=== PATIENT | male | born 1965 | race Hispanic/Latino ===

== ENCOUNTER 2023-10-20 08:27 | Outpatient (CLI) | payer OTHER ==
[2023-10-20 08:49] LABS: #Basophils 0.1 thou/uL (0.0-0.2); #Eosinphils 0.2 thou/uL (0.0-0.7); #Lymphocytes 1.3 thou/uL (1.20-3.40); #Monocytes 0.3 thou/uL (0.11-0.59); #Neutrophils 3.9 thou/uL (1.40-6.50); %Basophils 0.9 % (0.0-1.0); %Eosinophils 3.1 % (0.0-10.0); %Lymphocytes 22.4 % (21.0-51.0); %Monocytes 5.6 % (0.0-10.0); Hematocrit 42.7 % (42.0-52.0); Hemoglobin 14.5 g/dL (14.0-18.0); Mean Corpuscular HGB CONC 34.1 g/dL (32.0-36.0); Mean Corpuscular Hemoglobin 27.1 pg (27.0-31.0); Mean Corpuscular Volume 79.4 fl (78.0-98.0); Mean Platelet Volume 7.7 fL (7.4-10.4); Platelet Count 258 10x3/uL (130-400); RBC Distribution Width 11.1 % (11.5-14.5); Red Blood Cell (RBC) Count 5.37 mill/uL (4.70-6.10); White Blood Cell (WBC) Count 5.7 10x3/uL (4.8-10.8)
[2023-10-20 09:30] LABS: ALT (SGPT) 15 U/L (8-55); AST (SGOT) 12 U/L (5-34); Albumin 3.4 g/dL (3.5-5.0); Alkaline Phosphatase 84 U/L (40-110); Anion Gap 12 mmol/L (10-20); BUN (Urea Nitrogen) 19 mg/dL (8.4-25.7); Bilirubin, Total 0.3 mg/dL (0.2-1.2); Calc. Creatinine Clearance 0 mL/min (70-130); Calcium 9.2 mg/dL (7.8-10.44); Carbon Dioxide 26 mmol/L (22-29); Cardiac Risk 4.1 (Less than 4.5); Chloride 107 mmol/L (98-107); Cholesterol 154 mg/dl (< 200 Desired); Estimated GFR 82; Globulin 3.8 g/dL (2.4-3.5); Glucose 180 mg/dL (70-105); HDL Cholesterol 38 mg/dL (>60 Neg Risk); LDL Cholesterol, Calculated 90 mg/dL; Potassium 4.3 mmol/L (3.5-5.1); Protein, Total 7.2 g/dL (6.0-8.3); Sodium 141 mmol/L (136-145); Triglycerides 130 mg/dL (Less than 150)
[2023-10-20 09:44] LABS: Thyroid Stimulating Hormone 1.1645 uIU/mL (0.35-4.94)
[2023-10-20 11:30] LABS: PSA-Asymptomatic (SCREENING) 2.027 ng/mL (0-4.0)
== END 2023-10-20 08:28 | disposition home or self-care (01) ==
LOC: BURLAB 08:27
PROVIDERS: ATTEND Nurse Practitioner Family
DX: Z00.00 Encounter for general adult medical examination without abnormal findings (principal); R39.9 Unspecified symptoms and signs involving the genitourinary system
CPT/HCPCS: 36415; 80053; 80061; 84443; 85025; 87086; G0103